=== PATIENT | male | born 1965 | race Caucasian/White ===

== ENCOUNTER 2017-03-06 11:22 | Inpatient (IN) ==
[2017-03-06] MEDS ORDERED: ACETAMINOPHEN 325 MG TABLET PO PRN (11:33)
[2017-03-06] MEDS ORDERED: HYDROmorphone 2 MG/1 ML VIAL IV PRN (11:33)
[2017-03-06] MEDS ORDERED: KETOROLAC 30 MG/1 ML VIAL IV PRN (11:33)
[2017-03-06] MEDS ORDERED: ONDANSETRON 4 MG/2 ML VIAL IV PRN (11:33)
--- NOTE | 2017-03-06 13:11 | General Surgery Consult Note ---
Assessment and Plan - Time spent with patient Time spent with patient: Less than 30 minutes (1) Abscess of skin or subcutaneous tissue Status: Acute Assessment and plan: Impression: Right groin abscess Plan: Aggressive IV antibiotics and surgery tomorrow for drainage. Current Visit: No Qualifiers: Site of cutaneous abscess of trunk: groin History of Present Illness Chief complaint: Painful swelling left groin History of present illness: Mr. Denise is a 51 year old male white who is fairly healthy but has described some infection in his left groin in the past. He started to have the onset of discomfort in his groin about Thursday and has gotten progressively worse and tender. He was seen in emergency room last night given some Rocephin but was not admitted for this abscess. Because of the pain and discomfort he saw Dr. Brewster today who went ahead and admit him start him IV antibiotics. He is got a good indurated area in this region there is 2 punctate openings what looks like an old incision although is difficult to get a good history for that. At this point we will set him up for surgery in the morning try to get this thing opened and drained. Home Medications Medication Instructions Recorded Confirmed Type Ketorolac Tab [Toradol Tab] 10 mg PO Q8H #14 tablet 03/05/17 Rx Levofloxacin Tab [Levaquin Tab] 500 mg PO Q24H #7 tablet 03/05/17 Rx Allergies Allergy/AdvReac Type Severity Reaction Status Date / Time No Known Allergies Allergy Unverified 03/05/17 17:41 Medical,Surgical,& Family Hx - Medical History Cardio: History of: Hypertension - Social History Smoking Status: Current every day smoker Frequency of Alcohol Use: Occasionally 12 point system: reviewed and no additional remarkable complaints except as stated Exam - Constitutional General appearance: mild distress - Head Head exam: Present: normal inspection - ENT ENT exam: Present: normal exam - Neck Neck exam: Present: normal inspection - Respiratory Respiratory exam: Present: clear to auscultation bilaterally - Cardiovascular Cardiovascular exam: Present: RRR - GI/Abdominal GI/Abdominal exam: Present: normal bowel sounds, soft, other (Left groin area near the scrotum has 2 punctate little areas without drainage. There is a large indurated erythematous area in the groin region) - Anus/Rectum Anus/Rectum: other (No pamela-anal or perirectal mass or swelling) - Extremities Exam Extremities exam: Present: normal inspection - Back Exam Back exam: Present: normal inspection - Neurological Exam Neurological exam: Present: alert, oriented X3, CN II-XII intact - Skin Skin exam: Present: normal color, warm, dry Results - Labs Lab Results: I have reviewed the past 24 hour labs
[2017-03-06] MEDS: SODIUM CHLORIDE 0.9% 1,000 ML IV SCH (13:26)
[2017-03-06] MEDS: PIPERACILLIN/TAZOBACTAM 3,375 MG in SODIUM CHLORIDE 0.9% 100 ML IV SCH ×2 (13:26→22:33)
--- NOTE | 2017-03-06 13:30 | EKG Report ---
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
--- NOTE | 2017-03-06 14:11 | Family Practice History&Phys ---
Assessment and Plan (1) Cellulitis Status: Acute Assessment and plan: 03/06/2017 patient has been placed on Zosyn. He has been taking Levaquin but will hold this Current Visit: Yes (2) Tachycardia Status: Acute Assessment and plan: 03/06/2017: This is probably secondary to fever Current Visit: Yes (3) Allergic dermatitis Status: Acute Assessment and plan: 03/06/2017. This may be due to medication although it could be due to the infection itself. We will going to treat him with antihistamines and a little dose of steroid just see if this will work Current Visit: Yes History of Present Illness Chief complaint: Abscess left groin area History of present illness: Mr. Denise is a 51 year old male Came to my clinic today with pain in his left groin/inguinal area. 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 This was very red and had a firm induration to it. States that he started developing pain in this area this past Thursday and it started to get worse over the course of the week. He did go to the emergency room Thursday and was given some IV Rocephin as well as IV fluids. He was then placed on Levaquin but he got worse over the last day or so and states that it is extremely painful. It is quite tender to touch and feel like there is a deeper abscess. He does have a small punctate/ vesicular area which is superficial. There is also some inguinal lymphadenopathy appreciated. The patient is tachycardic with a rate of 120 and has been running a low-grade fever. We are going to admit him and start him on IV antibiotics, we will get blood cultures and regular lab get up surgical consult which is already been done and appreciate surgery on this case. Patient is otherwise quite healthy and really has no other medications Home Medications Medication Instructions Recorded Confirmed Type Ketorolac Tab [Toradol Tab] 10 mg PO Q8H #14 tablet 03/05/17 03/06/17 Rx Levofloxacin Tab [Levaquin Tab] 500 mg PO Q24H #7 tablet 03/05/17 03/06/17 Rx Omeprazole Magnesium [Prilosec Otc] 20 mg PO DIRECTED 03/06/17 03/06/17 History Allergies Allergy/AdvReac Type Severity Reaction Status Date / Time No Known Allergies Allergy Unverified 03/05/17 17:41 12 point system: reviewed and no additional remarkable complaints except as stated (That mentioned above.) - EENT Nose, mouth and throat: Absent: dysphagia, nasal congestion - Cardiovascular Cardiovascular: Absent: chest pain at rest, diaphoresis - Respiratory Respiratory: Absent: dyspnea - Musculoskeletal Musculoskeletal: Absent: joint swelling - Psychiatric Psychiatric: Absent: depression Medical,Surgical,& Family Hx - Medical History Cardio: History of: Hypertension - Family History Family History: Reports;: Family Diabetes (mom and dad), Family Hypertension ( mom and dad) - Social History Smoking Status: Current every day smoker Frequency of Alcohol Use: Occasionally Exam - Constitutional Vitals: Period Temp Pulse Resp BP Sys/Obando Pulse Ox Last 24 Hr 98.7 F 107 20 152/88 94 Exam: Generally healthy looking male. In only mild distress secondary to the pain HEENT pupils equal reactive to light extraocular movements are intact neck is supple trachea midline Cardiovascular rate is regular but tachycardic probably secondary to the fever. Lungs clear bilaterally no acute distress Abdomen soft nondistended, patient does have a rash on his abdomen which looks like an allergic type reaction Peroneal patient denies any penile discharge no testicular pain. He does have some some significant redness/erythema in the left groin area and on the medial aspect of his thigh with questionable cellulitis. There is an area of induration is noted above. Extremities positive radial and dorsalis pedal pulses bilateral upper and lower extremities Neurologically fully intact no cranial nerve or peripheral nerve deficits Quality Measures - VTE Contraindication to Pharmacological VTE Prophylaxis: High Risk of Bleeding
[2017-03-06 14:19] LABS: Basophils # 0.1 10*3/uL (0.0-0.2); Basophils % 0.5 % (0.0-0.8); Eosinophils # 0.1 10*3/uL (0.0-0.87); Eosinophils % 0.5 % (0.00-10.9); Hematocrit 41.2 VOL% (42.0-52.0); Hemoglobin 13.6 GM/DL (14.0-18.0); Immature Granulocytes % 1.4 %; Immature Granulocytes Absolute 0.18 #; Lymphocytes # 1.6 10*3/uL (1.4-4.0); Lymphocytes % 12.6 % (21.2-54.2); Mean Corpuscular Hemoglobin 31 PG (27-34); Mean Corpuscular Volume 92.4 FL (87-102); Mean Platelet Volume 10.5 FL (9.6-12.0); Monocytes # 1.2 10*3/uL (0.11-0.8); Monocytes % 9.2 % (1.7-12.7); Neutrophils # 9.7 10*3/uL (1.4-7.4); Neutrophils % 75.8 % (38.7-73.9); Platelet Count 129 T/CUMM (130-400); Red Blood Count 4.46 MC/CUMM (3.8-5.5); Red Cell Distribution Width 15.3 % (9.3-17.3); White Blood Count 12.8 T/CUMM (4-12)
[2017-03-06] MEDS ORDERED: diphenhydrAMINE CAP 50 MG CAPSULE PO PRN (14:21)
[2017-03-06 14:23] LABS: Apearance,Urine CLEAR (Clear); Blood, Urine Negative (Negative); Glucose,Urine (UA) Negative (Negative); Ketones,Urine Negative (Negative); Mucus,Urine Many /LPF (Occasional); Nitrite,Urine Negative (Negative); Protein,Urine 30 MG/DL; RBC,Urine 5 /HPF (0-4); Squamous Epithelial Cell,Urine Occasional /HPF (0-10); Urine Color Amber (Yellow); Urine Specific Gravity 1.025 (1.001-1.035); WBC,Urine 2 /HPF (0-6)
[2017-03-06 14:29] LABS: Bilirubin,Urine Small mg/dL (Negative)
[2017-03-06 14:30] LABS: PT Patient Result 10.3 SECS; Partial Thromboplastin Time 28.8 SECS (0-40)
[2017-03-06 14:49] LABS: Albumin 2.2 G/DL (3.4-5.0); Bilirubin,Total 2.5 MG/DL (0.2-1.0); Calcium 8.4 MG/DL (8.5-10.1); Osmolality,Calculated 268.1 MOS/KG (273-304); Potassium 4.1 MMOL/L (3.5-5.1); Total Protein 5.6 G/DL (6.4-8.3)
[2017-03-06] MEDS ORDERED: methylPREDNISolone SOD SUC 125 MG/2 ML VIAL IV ONE (15:00)
--- NOTE | 2017-03-06 15:37 | Ultrasound Report ---
Referring Physician: Melquiades Hawkins Exam: US left extremity nonvascular Date: March 06, 2017 Reason: Left groin swelling, possible abscess Comparison: None Technique: Grayscale and color flow images of the reported area of concern were obtained at the left scrotum/upper thigh. Ultrasound images were captured and stored. Findings: At the junction of the scrotum and left thigh, there is a heterogeneous nonvascular area which measures 2.6 x 2.3 x 2.2 cm and has irregular margins. The surrounding soft tissues are somewhat hypervascular, and there is surrounding subcutaneous edema. This is concerning for an abscess. Impression: There is a heterogeneous nonvascular area at the junction of the scrotum and left thigh, measuring 2.6 x 2.3 x 2.2 cm. This is concerning for an abscess. Follow-up is recommended to confirm resolution and exclude underlying neoplasm. PROCEDURE INTERPRETED AT [facility] DEPARTMENT OF RADIOLOGY Final Report Signed by: Dr. Rodri Hernandez
--- NOTE | 2017-03-06 15:51 | XRay Report ---
History: Respiratory preop evaluation. Pre-op groin abscess Date: 03/06/2017 Study: Chest x-ray PA and lateral Comparison exam: No previous chest available The cardiac silhouette is not enlarged. There is no mediastinal mass. There is no pulmonary vascular engorgement. The lungs and pleural spaces are clear. The lungs are borderline hyperexpanded. There is mild thoracic spondylosis. Impression: No acute cardiopulmonary process PROCEDURE INTERPRETED AT [facility] DEPARTMENT OF RADIOLOGY Final Report Signed by: Dr. Makenna Meza
[2017-03-06] MEDS: CLINDAMYCIN INJ 600 MG in PREMIX 1 EACH IV SCH ×2 (17:22→19:38)
[2017-03-06] MEDS: metroNIDAZOLE INJ 500 MG in PREMIX 1 EACH IV SCH ×2 (17:59→21:32)
[2017-03-07] MEDS: CLINDAMYCIN INJ 600 MG in PREMIX 1 EACH IV SCH ×4 (02:44→20:24)
[2017-03-07] MEDS: metroNIDAZOLE INJ 500 MG in PREMIX 1 EACH IV SCH ×4 (03:53→22:49)
[2017-03-07] MEDS ORDERED: LORazepam 1 MG TABLET PO ONE (06:00)
[2017-03-07] MEDS ORDERED: PANTOPRAZOLE 40 MG TABLET PO ONE (06:00)
[2017-03-07] MEDS ORDERED: CLINDAMYCIN INJ 900 MG in PREMIX 1 EACH IV ONE ×2 (06:00→07:00)
[2017-03-07] MEDS ORDERED: BUPIVACAINE MPF 0.25% /EPI 30 ML VIAL ONE (06:27)
[2017-03-07] MEDS: PIPERACILLIN/TAZOBACTAM 3,375 MG in SODIUM CHLORIDE 0.9% 100 ML IV SCH ×3 (07:40→22:49)
[2017-03-07] MEDS ORDERED: BISACODYL 5 MG TABLET PO PRN (08:00)
[2017-03-07] MEDS ORDERED: HYDROmorphone 2 MG/1 ML VIAL IV PRN ×2 (08:00→08:15)
[2017-03-07] MEDS ORDERED: ONDANSETRON 4 MG/2 ML VIAL IV PRN ×2 (08:00→08:15)
--- NOTE | 2017-03-07 08:00 | Operative Note ---
Date of procedure: 03/07/17 Pre-op diagnosis: Abscess left groin Post-op diagnosis: same Procedure: Operative note: Preoperative diagnosis: Indurated left groin possibly secondary to abscess Postoperative diagnosis: Abscess left groin possibly secondary to sebaceous cyst Procedure: Excisional debridement of skin and necrotic fatty tissue and drainage of abscess. Surgeon Dr. Hawkins [employer] Worker Chanell Calzada, BREAKDOWN MAN ACNP Anesthesia general with local Brief history: 51-year-old white male comes in because of progressive pain enlarging indurated tender mass in the left groin. There is some history that he may have had this drained in the past. There are 2 punctate openings in the skin at this time at the area of the induration but I do not feel a clear sebaceous cyst. Induration is large and tender at this time so we then put him on antibiotics bring to surgery. Procedure: With patient in the dorsal lithotomy position prepped and draped in a sterile fashion with timeout and antibiotics completed approaches area of the left groin which is an indurated mass of 11 x 3 cm. I infiltrated around with local anesthetic. With the knife I then made an incision through the area of the 2 punctate regions going down to the skin subcutaneous tissue with a knife in and entering a large cavity of purulent material that we cultured aerobically and anaerobically. At that point we opened it widely unroofed the entire cavity. Then with scissors and electrocautery I would begin to debride the deep subcutaneous tissue taking tissue for culture. Debrided all necrotic fatty tissue but not exposing any muscle or unusual fascial tissue. We then debrided the skin edges of the punctate openings as well as an anal area that looked like a small sebaceous cyst. We debrided carefully down into the deep part of the cavity and then irrigated with saline solution. Once it was clear and dry then we elected to pack it with a Dakin's wet Kerlix roll. We have a post debridement wound is now 7 x 1 x 2 cm. dressings were applied and the patient taken to recovery room. Estimated blood loss 10 cc Sponge count correct 2 Drains none Packing Kerlix gauze Complications none Condition stable satisfactory Anesthesia: GETA, local (0.25% Marcaine with epinephrine mixed [id number] 1% Xylocaine plain) Surgeon / Physician: Melquiades Hawkins [employer] Worker: Chanell Calzada Estimated blood loss: other (10 cc) Specimens: other (Tissue for path and culture) Condition: stable Disposition: floor Results - Labs CBC & BMP: 03/06/17 13:51 03/06/17 13:51 Discharge Plan - Discharge Medications No Action Levofloxacin Tab [Levaquin Tab] 500 mg PO Q24H #7 tablet Ketorolac Tab [Toradol Tab] 10 mg PO Q8H #14 tablet Omeprazole Magnesium [Prilosec Otc] 20 mg PO DIRECTED - Follow Up or Referral - Forms/Instructions
[2017-03-07] MEDS ORDERED: PROPOFOL 200 MG/20 ML VIAL IV ONE (08:32)
[2017-03-07] MEDS ORDERED: SEVOFLURANE 1 UNIT/15 MINUTE INH ONE (08:33)
[2017-03-07] MEDS ORDERED: MIDAZOLAM 2 MG/2 ML VIAL ONE (08:34)
[2017-03-07] MEDS ORDERED: ONDANSETRON 4 MG/2 ML VIAL ONE (08:34)
[2017-03-07] MEDS ORDERED: KETOROLAC 30 MG/1 ML VIAL ONE (08:34)
[2017-03-07] MEDS ORDERED: fentaNYL 100 MCG/2 ML VIAL ONE (08:34)
[2017-03-07] MEDS ORDERED: ACETAMINOPHEN 1,000 MG/100 ML VIAL IV ONE (08:35)
--- NOTE | 2017-03-07 09:34 | Anesthesia Post-Op ---
Anesthesia Post OP - Post Ansesthetic Evaluation Patient seen in post op: Yes Resp: within normal limits CV: within normal limits Mental: within normal limits Temp: within normal limits [id number]: within normal limits Nausea and Vomiting: within normal limits Pain: within normal limits
[2017-03-07] MEDS: KETOROLAC 15 MG/1 ML VIAL IV SCH ×3 (09:40→20:24)
[2017-03-07] MEDS: SODIUM CHLORIDE 0.9% 1,000 ML IV SCH (09:43)
[2017-03-07] MEDS: LORATADINE 10 MG TABLET PO SCH (09:46)
[2017-03-07] MEDS: DOCUSATE SODIUM 100 MG CAPSULE PO SCH (09:46)
[2017-03-07] MEDS: FAMOTIDINE 20 MG TABLET PO SCH (09:46)
--- NOTE | 2017-03-07 11:21 | Internal Med Progress Note ---
Assessment and Plan (1) Cellulitis Status: Acute Assessment and plan: 51-year-old male admitted to acute care * Abscess in the left groin. Patient status post I&D. He is more comfortable. Continue antibiotics. Waiting for cultures. * Discussed with patient Current Visit: Yes (2) Abscess of skin or subcutaneous tissue Status: Acute Current Visit: No Qualifiers: Site of cutaneous abscess of trunk: groin Internal Medicine - PN: Subj Interval history: 51-year-old male admitted to acute care with pain and abscess in the left groin. Patient underwent excisional debridement of skin and necrotic fatty tissue with drainage of abscess this morning by Dr. oakes. He feels much better today. He denies any specific complaints Exam (Progress Note) - Constitutional Vitals: Period Temp Pulse Resp BP Sys/Obando Pulse Ox Last 24 Hr 97.1 F-100.3 F 81-107 12-21 97-153/62-88 92-100 General appearance: normal weight, no acute distress - Head Head exam: Present: normal inspection - Eye Eye exam: Present: EOMI Pupils: Present: REY - Neck Neck exam: Present: normal inspection - Respiratory Respiratory exam: Present: clear to auscultation bilaterally - Cardiovascular Cardiovascular exam: Present: regular rate and rhythm - GI/Abdominal GI/Abdominal exam: Present: normal bowel sounds, soft, other (Dressing is present on the area of abscess drainage). Absent: tenderness - Extremities Exam Extremities exam: Present: normal inspection. Absent: edema Results - Labs CBC & BMP: 03/06/17 13:51 03/06/17 13:51 Lab Results: I have reviewed the past 24 hour labs Quality Measures - VTE Contraindication to Pharmacological VTE Prophylaxis: High Risk of Bleeding
[2017-03-07] MEDS: PANTOPRAZOLE 40 MG TABLET PO SCH (12:39)
[2017-03-08] MEDS: KETOROLAC 15 MG/1 ML VIAL IV SCH ×4 (01:47→20:24)
[2017-03-08] MEDS: CLINDAMYCIN INJ 600 MG in PREMIX 1 EACH IV SCH ×4 (01:47→20:22)
[2017-03-08] MEDS: ENOXAPARIN 40 MG/0.4 ML SYRINGE SUBCUT SCH (01:51)
[2017-03-08] MEDS: PIPERACILLIN/TAZOBACTAM 3,375 MG in SODIUM CHLORIDE 0.9% 100 ML IV SCH ×3 (04:37→20:59)
[2017-03-08] MEDS: metroNIDAZOLE INJ 500 MG in PREMIX 1 EACH IV SCH ×4 (04:37→22:56)
[2017-03-08 06:58] LABS: Basophils % 0.3 % (0.0-0.8); Eosinophils # 0.1 10*3/uL (0.0-0.87); Eosinophils % 1.1 % (0.00-10.9); Hematocrit 36.5 VOL% (42.0-52.0); Hemoglobin 11.8 GM/DL (14.0-18.0); Lymphocytes # 2.7 10*3/uL (1.4-4.0); Mean Corpuscular HGB Conc 32.3 GM/DL (32-36); Mean Corpuscular Hemoglobin 30 PG (27-34); Mean Corpuscular Volume 92.6 FL (87-102); Mean Platelet Volume 10.8 FL (9.6-12.0); Monocytes # 0.8 10*3/uL (0.11-0.8); Monocytes % 8.1 % (1.7-12.7); Neutrophils # 6.2 10*3/uL (1.4-7.4); Neutrophils % 62.5 % (38.7-73.9); Platelet Count 202 T/CUMM (130-400); Red Blood Count 3.94 MC/CUMM (3.8-5.5); Red Cell Distribution Width 15.9 % (9.3-17.3); White Blood Count 9.9 T/CUMM (4-12)
[2017-03-08] MEDS: LORATADINE 10 MG TABLET PO SCH (08:24)
[2017-03-08] MEDS: DOCUSATE SODIUM 100 MG CAPSULE PO SCH (08:25)
[2017-03-08] MEDS: SODIUM HYPOCHLORITE 0.25% IRRIG 473 ML BOTTLE TOP SCH (08:26)
[2017-03-08] MEDS: PANTOPRAZOLE 40 MG TABLET PO SCH (08:26)
[2017-03-08] MEDS: FAMOTIDINE 20 MG TABLET PO SCH (08:26)
[2017-03-08] MEDS: SODIUM CHLORIDE 0.9% 1,000 ML IV SCH ×2 (09:18→11:06)
--- NOTE | 2017-03-08 10:17 | Internal Med Progress Note ---
Assessment and Plan (1) Cellulitis Status: Acute Assessment and plan: 51-year-old male admitted to acute care * Abscess in the left groin. Patient status post I&D. His cultures are pending. Continue Zosyn for now * DC IV fluids. * Discussed with patient Current Visit: Yes (2) Abscess of skin or subcutaneous tissue Status: Acute Current Visit: No Qualifiers: Site of cutaneous abscess of trunk: groin Internal Medicine - PN: Subj Interval history: 51-year-old male admitted to acute care with pain and abscess in the left groin. He is gradually improving. He feels better today. Except for some pain in his groin he does not have any complaints. He is eating well Exam (Progress Note) - Constitutional Vitals: Period Temp Pulse Resp BP Sys/Obando Pulse Ox Last 24 Hr 97.2 F-98.1 F 71-94 18-20 133-164/72-91 94-98 General appearance: normal weight, no acute distress - Head Head exam: Present: normal inspection - Eye Eye exam: Present: EOMI Pupils: Present: REY - Neck Neck exam: Present: normal inspection - Respiratory Respiratory exam: Present: clear to auscultation bilaterally - Cardiovascular Cardiovascular exam: Present: regular rate and rhythm - GI/Abdominal GI/Abdominal exam: Present: normal bowel sounds, soft, other (Dressing present over left groin). Absent: tenderness - Extremities Exam Extremities exam: Present: normal inspection. Absent: edema Results - Labs CBC & BMP: 03/08/17 04:47 03/06/17 13:51 Lab Results: I have reviewed the past 24 hour labs Quality Measures - VTE Contraindication to Pharmacological VTE Prophylaxis: High Risk of Bleeding
--- NOTE | 2017-03-08 13:14 | Event Note ---
03/08/2017 Patient is afebrile recovering from the surgery of the left growing for the abscess was drained. Cultures are pending at this point and he is beginning to learn how to take care of this wound at this time. He does have some assistance since it is difficult area to get to. It is painful to him and he is going require some pain medication once he leaves here. Once we have the final cultures will be able to know what to send him home on antibiotic gardner and continue present wound care.
[2017-03-09] MEDS: ENOXAPARIN 40 MG/0.4 ML SYRINGE SUBCUT SCH (01:32)
[2017-03-09] MEDS: CLINDAMYCIN INJ 600 MG in PREMIX 1 EACH IV SCH ×2 (01:33→11:40)
[2017-03-09] MEDS: KETOROLAC 15 MG/1 ML VIAL IV SCH ×2 (01:33→10:07)
[2017-03-09] MEDS: metroNIDAZOLE INJ 500 MG in PREMIX 1 EACH IV SCH ×2 (03:54→12:36)
[2017-03-09] MEDS: PIPERACILLIN/TAZOBACTAM 3,375 MG in SODIUM CHLORIDE 0.9% 100 ML IV SCH ×2 (05:48→14:58)
[2017-03-09] MEDS: DOCUSATE SODIUM 100 MG CAPSULE PO SCH (10:06)
[2017-03-09] MEDS: FAMOTIDINE 20 MG TABLET PO SCH (10:06)
[2017-03-09] MEDS: PANTOPRAZOLE 40 MG TABLET PO SCH (10:07)
[2017-03-09] MEDS: SODIUM HYPOCHLORITE 0.25% IRRIG 473 ML BOTTLE TOP SCH (10:07)
[2017-03-09] MEDS: LORATADINE 10 MG TABLET PO SCH (10:08)
--- NOTE | 2017-03-09 10:41 | General Surgery Progress Note ---
Assessment and Plan - Time spent with patient Time spent with patient: Less than 30 minutes (1) Abscess of skin or subcutaneous tissue Status: Acute Assessment and plan: 03/09/2017 Abscess of the left groin. This appears to be responding well to current antibiotics and local care. He does have support at home, his mom is a retired nurse and his girlfriend has been taught to do wound care. He is anticipating discharge later today, and we do agree with discharge home on p.o. Levaquin pending final culture results. I also favor some type of mild narcotic for breakthrough pain during dressing changes, as this will be quite sensitive for irrigations. We did discuss the possibility of delayed primary closure if cultures remain negative, and he favors this given the fact that he has unable to work due to this large open wound. We will revisit this pending the outcome of the final cultures. Okay with us for discharge later today. Would like to see him in the office in 7-10 days unless he has problems. Current Visit: No Qualifiers: Site of cutaneous abscess of trunk: groin Subjective Patient reports: Present: feels better, pain is less (His pain is primarily associated with dressing changes, otherwise he is comfortable.) Exam - Constitutional Vitals: Period Temp Pulse Resp BP Sys/Obando Pulse Ox Last 24 Hr 97.7 F-98.3 F 77-96 18-20 141-168/72-95 96-98 General appearance: no acute distress - Extremities Exam Extremities exam: Present: other (Left groin wound clean; induration is resolving. No gross purulence.) Results - Labs CBC & BMP: 03/08/17 04:47 03/06/17 13:51 Lab Results: I have reviewed the past 24 hour labs (Preliminary cultures show no growth.) Quality Measures - VTE Contraindication to Pharmacological VTE Prophylaxis: High Risk of Bleeding
--- NOTE | 2017-03-09 11:27 | Pathology Report from [facility] ---
ACCESSION # : [id number] PATIENT NAME : Atiya Denise Carroll P ORDERING DR : BRITT QUINONEZ MD CLINICAL HX: Groin abscess POST-OP DX: Same SPECIMEN INFO: Left side groin tissue GROSS DESCRIPTION: The specimen is received in formalin labeled with the patient 's name Harry Denise consists of a fatty yellow brown fragment of tissue measuring 0.9 x up to 0.7 cm. Bisected and submitted in one cassette. DIAGNOSIS FOR HARRY DENISE III: LEFT GROIN, DEBRIDEMENT: Dermal abscess formation with marked cautery artifact. SERVICE DATE: 03/09/2017 REPORT DATE: 03/09/2017 PATHOLOGIST: Beverley Hogan III, M.D. MTDD
[2017-03-09 12:09] VITALS: BP 127/89
--- NOTE | 2017-03-09 12:38 | Discharge Summary ---
Hospital Course - Hospital Course Hospital Course: Patient was admitted to the hospital with a large abscess on his left inguinal/ general area. This required and incision and drainage by surgeon and we did get immediate surgical involvement. We had started him on antibiotics. He proceeded to do well and drainage and packing of the dressing was performed without difficulty. The patient did have some inguinal lymphadenopathy associated with this and was discharged on outpatient antibiotics as well. He is to have close follow-up by the surgeon as well as myself Diagnosis - Discharge Diagnosis (1) Cellulitis Status: Acute (2) Tachycardia Status: Acute (3) Allergic dermatitis Status: Acute Specialty Discharge - Follow Up or Referrals Follow up with: Melquiades Hawkins MD [Physician] - 03/16/17 9:00 am (Come with insurance card, photo ID and home medications. ) Sreekanth Brewster DO [Primary Care Provider] - 03/23/17 1:00 pm Discharge Plan - Discharge Data Disposition: Disch To Home/Self Care Condition at Discharge: Stable Discharge Diet: advance to your usual diet Activity: increase activity as tolerated Hygiene: no restrictions, may shower, keep area(s) dry Weight Bearing at Discharge: weight bear as tolerated Driving: not until seen by doctor Contact your physician if you experience:: fever over 101, Redness or swelling, pain uncontrolled by pain medications - Discharge Medications New Sodium Hypochlorite 0.25% Irr [Dakins 1/2 Strength 0.25% Soln] 1 applic TOP DAILY applic Tramadol HCl [Ultram] 50 mg PO Q12H PRN #20 tablet PRN Reason: Pain Levofloxacin Tab [Levaquin Tab] 750 mg PO DAILY #8 tablet Loratadine Tab [Claritin Tab] 10 mg PO DAILY tablet Continue Omeprazole Magnesium [Prilosec Otc] 20 mg PO DIRECTED Discontinued Levofloxacin Tab [Levaquin Tab] 500 mg PO Q24H #7 tablet Ketorolac Tab [Toradol Tab] 10 mg PO Q8H #14 tablet - Follow Up or Referral Follow Up: Melquiades Hawkins MD [Physician] - 03/16/17 9:00 am (Come with insurance card, photo ID and home medications. ) Sreekanth Brewster DO [Primary Care Provider] - 03/23/17 1:00 pm - Forms/Instructions Exam - Constitutional Vitals: Period Temp Pulse Resp BP Sys/Obando Pulse Ox Last 24 Hr 97.7 F-98.3 F 77-96 18-20 127-168/72-95 96-98 Discharge Results Procedures and tests throughout hospitalization: Pending Orders 03/06/17 13:51 Blood Culture Routine 03/07/17 07:45 Abscess Culture Routine Anaerobic Culture Routine 03/10/17 04:00 BMP [Basic Metabolic Panel] IN AM Labs on day of discharge: Preliminary micro results at discharge 03/07/17 07:45 Abscess Culture - Preliminary Groin - Left No Growth at 48 hours. 03/06/17 13:51 Blood Culture - Preliminary Blood No growth at 1 day 03/06/17 13:51 Blood Culture - Preliminary Blood No growth at 1 day DS: Provider Date of admission: 03/06/17 11:33 Primary care physician: Sreekanth Brewster DO Attending physician on admission: Sreekanth Brewster DO Consults: 03/06/17 11:33 Consult to Case Mgmt/Social Srvs [CONS] Routine Reason for Case Mgmt/Social Srvs: Discharge Planning 03/06/17 11:40 Consult to Physician [CONS] Routine Comment: Patient with abscess left groin Consulting Provider: Melquiades Hawkins Consult to Specialist Group: Surgery When should Consulting Provider be notified: Now Person Notified: BLAIR CONNOR Date Notified: 03/06/17 Time Notified: 13:00 03/06/17 13:16 Consult to Anesthesiology [CONS] Routine Consulting Provider: Reason for Anesthesiology: Pre-op Clearance Consult Comment: General anesthesia needed 03/06/17 15:04 Consult to Pharmacy [CONS] Routine Reason for Pharmacy Consult: Adjust Meds Renal Funct Discharging clinician: Sreekanth Brewster DO
== END 2017-03-09 14:59 | disposition home or self-care (01) | DRG 572 ==
LOC: N.2E 12:04
PROVIDERS: ADMIT Family Medicine; ATTEND Family Medicine